=== PATIENT | male | born 1955 | race Hispanic/Latino ===

== ENCOUNTER 2017-07-13 14:26 | Emergency (ER) | payer BC, OTHER ==
[2017-07-13] MEDS ORDERED: LIDOCAINE HCL 1% 20 ML VIAL ONE (15:06)
[2017-07-13] MEDS ORDERED: TETANUS/DIPHTHERIA TOXOID [ADULT] 0.5 ML VIAL IM ONE (15:09)
[2017-07-13] MEDS ORDERED: IBUPROFEN 600 MG TABLET ONE (15:09)
== END 2017-07-13 16:19 | disposition home or self-care (01) ==
LOC: EDH 14:26
DX: S61.432A Puncture wound without foreign body of left hand, initial encounter (principal); Z98.890 Other specified postprocedural states; W26.0XXA Contact with knife, initial encounter; Y93.89 Activity, other specified; Y92.098 Other place in other non-institutional residence as the place of occurrence of the external cause; Y99.8 Other external cause status
CPT/HCPCS: 12002; 73130; 90471; 90714

== ENCOUNTER 2023-03-05 15:19 | Emergency (ER) | payer BC, OTHER ==
[~2023-03-05] VITALS: Ht 172.7 cm; Wt 117.9 kg
[2023-03-05 16:34] LABS: SARS-CoV-2, RNA, NAAT NEGATIVE SARS CoV-2 (NEGATIVE)
[2023-03-05 16:40] LABS: INFLUENZA TYPE A Negative For Type A (NEGATIVE); INFLUENZA TYPE B Negative For Type B (NEGATIVE); RSV negative (NEGATIVE)
[2023-03-05 17:45] LABS: BASOPHILS # (AUTO) 0.03 K/uL (0.00-0.20); BASOPHILS % (AUTO) 0.3 % (0.0-5.0); EOSINOPHILS # (AUTO) 0.05 K/uL (0.00-0.70); EOSINOPHILS % (AUTO) 0.5 % (0.0-8.0); HEMATOCRIT 39.1 % (42-54); IMMATURE GRANULOCYTE ABSOLUTE 0.05 K/uL (0-1); LYMPHOCYTES # (AUTO) 1.2 K/uL (1.0-4.8); LYMPHOCYTES % (AUTO) 12.9 % (21.0-51.0); MEAN CORPUSCULAR HEMOGLOBIN 30.6 pg (27.0-33.0); MEAN CORPUSCULAR HGB CONC 32.5 g/dL (32.0-36.0); MEAN CORPUSCULAR VOLUME 94.2 fL (79-99); MONOCYTES # (AUTO) 0.6 K/uL (0.1-1.0); MONOCYTES % (AUTO) 6.8 % (3.0-13.0); NEUTROPHILS # (AUTO) 7.3 K/uL (1.8-7.7); PLATELET COUNT (AUTO) 215 K/uL (130-400); RED BLOOD CELL COUNT(AUTO) 4.15 MIL/uL (4.50-6.20); WHITE BLOOD COUNT (AUTO) 9.2 K/uL (4.8-10.8)
[2023-03-05 17:54] LABS: CREATININE 1.1 mg/dL (0.5-1.5); POTASSIUM 4.2 mmol/L (3.5-5.1)
[2023-03-05 17:59] LABS: ALBUMIN 3.2 g/dL (3.5-5.0); BILIRUBIN,TOTAL 0.4 mg/dL (0.2-1.0); TOTAL PROTEIN, SERUM 7.7 g/dL (6.0-8.3)
[2023-03-05] MEDS ORDERED: IOHEXOL-350 75 ML VIAL IV ONE (22:01)
[2023-03-05] MEDS ORDERED: IBUP-1493 PO (23:00)
[2023-03-05] MEDS ORDERED: OMEP40CA21 PO (23:00)
[2023-03-05] MEDS ORDERED: KETOROLAC 15MG/ML VIAL (15MG/ML) IM ONE (23:30)
[2023-03-05 23:50] VITALS: BP 132/74; PULSE 88; RESP 18; O2SAT 99
[2023-03-06] MEDS ORDERED: BENZ-39 PO (00:54)
== END 2023-03-05 23:57 | disposition home or self-care (01) ==
LOC: EDH 15:19
DX: K80.20 Calculus of gallbladder without cholecystitis without obstruction (principal); R07.89 Other chest pain; Z20.822 Contact with and (suspected) exposure to COVID-19; Z79.899 Other long term (current) drug therapy
CPT/HCPCS: 99285; 84484; 80053; 85025; 85378; 87807; 87804 ×2; 36415; 87635; 71045; 71100; 71270; 96372; 93005; C9803; J1885; Q9967

== ENCOUNTER 2023-03-09 06:30 | Emergency (ER) | payer OTHER ==
[~2023-03-09] VITALS: Ht 167.6 cm; Wt 121.6 kg
[~2023-03-09 06:30] MED LIST: BENZ-39 PO; IBUP-1493 PO; OMEP40CA21 PO
[2023-03-09] MEDS ORDERED: MORPHINE 4 MG SYG IVP ONE (09:00)
[2023-03-09 09:02] LABS: BASOPHILS # (AUTO) 0.02 K/uL (0.00-0.20); BASOPHILS % (AUTO) 0.2 % (0.0-5.0); HEMATOCRIT 36.1 % (42-54); IMMATURE GRANULOCYTE ABSOLUTE 0.18 K/uL (0-1); LYMPHOCYTES # (AUTO) 0.9 K/uL (1.0-4.8); LYMPHOCYTES % (AUTO) 8.5 % (21.0-51.0); MEAN CORPUSCULAR HEMOGLOBIN 31.1 pg (27.0-33.0); MEAN CORPUSCULAR HGB CONC 34.1 g/dL (32.0-36.0); MEAN CORPUSCULAR VOLUME 91.4 fL (79-99); MONOCYTES # (AUTO) 0.5 K/uL (0.1-1.0); NEUTROPHILS # (AUTO) 9.1 K/uL (1.8-7.7); NEUTROPHILS % (AUTO) 84.6 % (40.0-77.0); PLATELET COUNT (AUTO) 261 K/uL (130-400); RED BLOOD CELL COUNT(AUTO) 3.95 MIL/uL (4.50-6.20); RED CELL DISTRIBUTION WIDTH 12.7 % (11.0-15.5); WHITE BLOOD COUNT (AUTO) 10.8 K/uL (4.8-10.8)
[2023-03-09 09:23] LABS: CREATININE 1.4 mg/dL (0.5-1.5); POTASSIUM 4.6 mmol/L (3.5-5.1)
[2023-03-09 09:28] LABS: ALBUMIN 3.2 g/dL (3.5-5.0); BILIRUBIN,TOTAL 0.4 mg/dL (0.2-1.0); TOTAL PROTEIN, SERUM 7.8 g/dL (6.0-8.3)
[2023-03-09 10:27] VITALS: RESP 18
[2023-03-09 10:42] LABS: APPEARANCE,URINE CLOUDY (CLEAR); BILIRUBIN,URINE NEGATIVE (NEGATIVE); COLOR,URINE YELLOW (YELLOW); GLUCOSE, URINE (UA) NEGATIVE (NEGATIVE); KETONES,URINE 5 mg/dL (NEGATIVE); LEUKOCYTE ESTERASE ,URINE NEGATIVE Leu/uL (NEGATIVE); NITRATE,URINE NEGATIVE (NEGATIVE); OCCULT BLOOD,URINE NEGATIVE (NEGATIVE); PH,URINE 5.5 (5.0-8.0); PROTEIN,URINE 30 mg/dL (NEGATIVE); UROBILINOGEN,URINE 0.2 mg/dL (0.2-1.0)
[2023-03-09 11:02] LABS: ADD UA MICROSCOPIC YES
[2023-03-09 11:05] LABS: HYALINE CASTS, URINE 26-50 /LPF (0-1 /LPF); MUCUS,URINE RARE LPF (None Seen); SQUAMOUS EPITHELIAL CELL,UR RARE /HPF (0-2)
[2023-03-09] MEDS ORDERED: BENZONATATE 100 MG CAPSULE PO ONE ×2 (11:31→12:00)
[2023-03-09 12:19] LABS: SARS-CoV-2, RNA, NAAT NEGATIVE SARS CoV-2 (NEGATIVE)
[2023-03-09] MEDS ORDERED: CEFTRIAXONE 1G VIAL IVPB ONE (13:00)
[2023-03-09 13:23] LABS: INR < 0.93 (0.85-1.15); PROTHROMBIN TIME 10.3 SEC (9.6-11.6)
[2023-03-09 13:25] LABS: PARTIAL THROMBOPLASTIN TIME 25.6 SEC (26.3-35.5)
[2023-03-09 13:48] VITALS: BP 161/72; PULSE 62; O2SAT 95
[2023-03-09] MEDS ORDERED: AEC81 PO (14:46)
[2023-03-09] MEDS ORDERED: TRAM50TA4 PO (14:46)
[2023-03-09] MEDS ORDERED: ALBUHFA IH (14:48)
== END 2023-03-09 15:09 | disposition home or self-care (01) ==
LOC: EDH 06:30
DX: S22.42XA Multiple fractures of ribs, left side, initial encounter for closed fracture (principal); E78.00 Pure hypercholesterolemia, unspecified; I10 Essential (primary) hypertension; Z79.1 Long term (current) use of non-steroidal anti-inflammatories (NSAID); Z79.899 Other long term (current) drug therapy; Z20.822 Contact with and (suspected) exposure to COVID-19; W18.39XA Other fall on same level, initial encounter; Y93.89 Activity, other specified; Y92.89 Other specified places as the place of occurrence of the external cause; Y99.8 Other external cause status
CPT/HCPCS: 99285; 74176; 93970; 96365; 71046; 87635; 96375; 80053; 85025; 85378; 85610; 85730; 87088; 81001; 36415; 71110; C9803; J0696; J2270

== ENCOUNTER → 2023-06-05 | Outpatient (CLI) | payer OTHER ==
[~2023-06-05] MED LIST changes: +AEC81 PO; +ALBUHFA IH; +TRAM50TA4 PO
[2023-06-05 12:08] LABS: BASOPHILS # (AUTO) 0.04 K/uL (0.00-0.20); BASOPHILS % (AUTO) 0.5 % (0.0-5.0); EOSINOPHILS # (AUTO) 0.05 K/uL (0.00-0.70); EOSINOPHILS % (AUTO) 0.6 % (0.0-8.0); HEMATOCRIT 36.6 % (42-54); IMMATURE GRANULOCYTE ABSOLUTE 0.04 K/uL (0-1); LYMPHOCYTES # (AUTO) 1.7 K/uL (1.0-4.8); LYMPHOCYTES % (AUTO) 20.7 % (21.0-51.0); MEAN CORPUSCULAR HEMOGLOBIN 31.3 pg (27.0-33.0); MEAN CORPUSCULAR HGB CONC 32.5 g/dL (32.0-36.0); MEAN CORPUSCULAR VOLUME 96.3 fL (79-99); MONOCYTES # (AUTO) 0.6 K/uL (0.1-1.0); MONOCYTES % (AUTO) 6.9 % (3.0-13.0); NEUTROPHILS # (AUTO) 5.8 K/uL (1.8-7.7); NEUTROPHILS % (AUTO) 70.8 % (40.0-77.0); PLATELET COUNT (AUTO) 224 K/uL (130-400); RED CELL DISTRIBUTION WIDTH 13.4 % (11.0-15.5); WHITE BLOOD COUNT (AUTO) 8.2 K/uL (4.8-10.8)
[2023-06-05 12:39] LABS: ALBUMIN 3.2 g/dL (3.5-5.0); BILIRUBIN,TOTAL 0.3 mg/dL (0.2-1.0); CREATININE 1.1 mg/dL (0.5-1.5); POTASSIUM 4.5 mmol/L (3.5-5.1); TOTAL PROTEIN, SERUM 7.1 g/dL (6.0-8.3)
[2023-06-05 12:41] LABS: B-TYPE NATRIURETIC PEPTIDE 25 pg/mL (0-100)
== END | disposition home or self-care (01) ==
LOC: LAB 08:49
PROVIDERS: ATTEND Internal Medicine Cardiovascular Disease
DX: R06.09 Other forms of dyspnea (principal); I10 Essential (primary) hypertension
CPT/HCPCS: 36415; 80053; 80061; 83880; 85025

== ENCOUNTER → 2023-06-24 | Outpatient (CLI) | payer OTHER ==
[2023-06-24 12:40] LABS: BASOPHILS # (AUTO) 0.04 K/uL (0.00-0.20); BASOPHILS % (AUTO) 0.6 % (0.0-5.0); EOSINOPHILS % (AUTO) 1.4 % (0.0-8.0); HEMATOCRIT 33.8 % (42-54); IMMATURE GRANULOCYTE ABSOLUTE 0.05 K/uL (0-1); LYMPHOCYTES # (AUTO) 2.4 K/uL (1.0-4.8); LYMPHOCYTES % (AUTO) 33.2 % (21.0-51.0); MEAN CORPUSCULAR HEMOGLOBIN 30.7 pg (27.0-33.0); MEAN CORPUSCULAR HGB CONC 32.8 g/dL (32.0-36.0); MEAN CORPUSCULAR VOLUME 93.6 fL (79-99); MONOCYTES # (AUTO) 0.5 K/uL (0.1-1.0); NEUTROPHILS # (AUTO) 4.1 K/uL (1.8-7.7); NEUTROPHILS % (AUTO) 57.1 % (40.0-77.0); PLATELET COUNT (AUTO) 226 K/uL (130-400); RED BLOOD CELL COUNT(AUTO) 3.61 MIL/uL (4.50-6.20); RED CELL DISTRIBUTION WIDTH 13.4 % (11.0-15.5); WHITE BLOOD COUNT (AUTO) 7.2 K/uL (4.8-10.8)
[2023-06-24 12:47] LABS: INR <= 0.93 (0.85-1.15); PROTHROMBIN TIME 10.2 SEC (9.6-11.6)
[2023-06-24 12:48] LABS: PARTIAL THROMBOPLASTIN TIME 25.9 SEC (26.3-35.5)
[2023-06-24 13:07] LABS: CREATININE 1.1 mg/dL (0.5-1.3); POTASSIUM 4.6 mmol/L (3.5-5.1)
== END | disposition home or self-care (01) ==
LOC: LAB 09:27
PROVIDERS: ATTEND Internal Medicine Cardiovascular Disease
DX: I87.1 Compression of vein (principal); I87.2 Venous insufficiency (chronic) (peripheral); R06.09 Other forms of dyspnea; R06.02 Shortness of breath; J45.909 Unspecified asthma, uncomplicated; R53.83 Other fatigue; I10 Essential (primary) hypertension; E78.2 Mixed hyperlipidemia; Z79.82 Long term (current) use of aspirin; Z79.899 Other long term (current) drug therapy
CPT/HCPCS: 36415; 80048; 85025; 85610; 85730

== ENCOUNTER → 2023-07-25 | Outpatient (CLI) | payer OTHER ==
[~2023-07-25] MED LIST changes: +IOHEXOL 350 MG/ML 100ML INFUS..BTL IV ONE
== END | disposition home or self-care (01) ==
LOC: RAH 09:56
PROVIDERS: ATTEND Internal Medicine Cardiovascular Disease
DX: I20.9 Angina pectoris, unspecified (principal); M47.815 Spondylosis without myelopathy or radiculopathy, thoracolumbar region; R94.39 Abnormal result of other cardiovascular function study; R06.00 Dyspnea, unspecified
CPT/HCPCS: 75574; Q9967

== ENCOUNTER 2024-02-09 10:05 | Emergency (ER) | payer OTHER ==
[~2024-02-09] VITALS: Ht 172.7 cm; Wt 117.9 kg
[~2024-02-09 10:05] MED LIST changes: -IOHEXOL 350 MG/ML 100ML INFUS..BTL IV ONE
[2024-02-09 10:24] LABS: APPEARANCE,URINE CLOUDY (CLEAR); BILIRUBIN,URINE NEGATIVE (NEGATIVE); COLOR,URINE YELLOW (YELLOW); GLUCOSE, URINE (UA) NEGATIVE (NEGATIVE); KETONES,URINE NEGATIVE (NEGATIVE); LEUKOCYTE ESTERASE ,URINE NEGATIVE Leu/uL (NEGATIVE); NITRATE,URINE NEGATIVE (NEGATIVE); OCCULT BLOOD,URINE NEGATIVE (NEGATIVE); PROTEIN,URINE 50 mg/dL (NEGATIVE); UROBILINOGEN,URINE 0.2 mg/dL (0.2-1.0)
[2024-02-09 10:28] LABS: ADD UA MICROSCOPIC YES
[2024-02-09 10:31] LABS: MUCUS,URINE RARE LPF (None Seen); SQUAMOUS EPITHELIAL CELL,UR RARE /HPF (0-2)
[2024-02-09] MEDS ORDERED: IBUP-2077 PO (10:51)
[2024-02-09] MEDS ORDERED: CYCL-309 PO (10:51)
[2024-02-09] MEDS: CYCLOBENZAPRINE HCL 10 MG TABLET PO ONE (10:53)
[2024-02-09] MEDS: HYDROcodone/APAP 5/325 1 TAB TABLET PO ONE (10:54)
[2024-02-09 10:57] VITALS: TEMP 98
[2024-02-09 11:13] LABS: HEMATOCRIT 32.4 % (42-54); MEAN CORPUSCULAR HEMOGLOBIN 30.4 pg (27.0-33.0); MEAN CORPUSCULAR HGB CONC 33.6 g/dL (32.0-36.0); MEAN CORPUSCULAR VOLUME 90.3 fL (79-99); RED BLOOD CELL COUNT(AUTO) 3.59 MIL/uL (4.50-6.20); RED CELL DISTRIBUTION WIDTH 13.3 % (11.0-15.5); WHITE BLOOD COUNT (AUTO) 8.7 K/uL (4.8-10.8)
[2024-02-09 11:18] LABS: CREATININE 1.5 mg/dL (0.5-1.3)
[2024-02-09] MEDS: PoTASSium BIcarbonate/CIT AC 25 MEQ TABLET.EFF PO ONE (11:38)
[2024-02-09 11:40] VITALS: BP 122/74; PULSE 74; RESP 17; O2SAT 96
== END 2024-02-09 11:57 | disposition home or self-care (01) ==
LOC: EDH 10:05
DX: S29.012A Strain of muscle and tendon of back wall of thorax, initial encounter (principal); M47.894 Other spondylosis, thoracic region; E78.00 Pure hypercholesterolemia, unspecified; I10 Essential (primary) hypertension; J45.909 Unspecified asthma, uncomplicated; Z79.1 Long term (current) use of non-steroidal anti-inflammatories (NSAID); Z79.82 Long term (current) use of aspirin; Z79.899 Other long term (current) drug therapy; Z98.890 Other specified postprocedural states; X58.XXXA Exposure to other specified factors, initial encounter; Y93.89 Activity, other specified; Y92.89 Other specified places as the place of occurrence of the external cause; Y99.8 Other external cause status
CPT/HCPCS: 36415; 72070; 80048; 81001; 85027

== ENCOUNTER 2024-08-14 18:07 | Inpatient (IN) | payer OTHER ==
[~2024-08-14] VITALS: Ht 172.7 cm; Wt 103.9 kg
[~2024-08-14 18:07] MED LIST changes: +0.9%NACL 50ML IV SCH; +CYCL-309 PO; +IBUP-2077 PO
--- NOTE | 2024-08-14 18:16 | ERN ---
ED Note History of Present Illness Stated Complaint: SIDE AND HEAD PAIN Chief Complaint: Abdominal Pain Time Seen by MD: 18:11 Dictation: PATIENT IS A 69-YEAR-OLD MALE COMING IN TODAY WITH COMPLAINTS OF SEVERE AND SUDDEN ONSET OF RIGHT LOWER QUADRANT PAIN TENDERNESS ONSET 03:00 HOURS THIS MORNING WHILE HE WAS ASLEEP. NAUSEA WITHOUT VOMITING NO FEVER NO CHILLS NO FLANK PAIN, NO CHANGE IN URINATION. Allergies: Coded Allergies: No Known Drug Allergies (Unverified Allergy, Unknown, 03/05/23) Home Meds Active Scripts Cyclobenzaprine HCl (Cyclobenzaprine HCl) 10 Mg Tablet, 1 TAB PO TID for muscle spasms for 10 Days, #30 TAB 0 Refills Prov:JS GEORGE NP 02/09/24 Ibuprofen (Ibuprofen 800 mg Tab) 800 Mg Tab, 800 MG PO Q8H PRN for fever or pain, #30 TAB 0 Refills Prov:JS GEORGE DRYWALL HANGER FRAMER 02/09/24 Albuterol Sulfate (Ventolin Hfa/Proventil Hfa/Proair Hfa) 90 Mcg Puff, 2 PUFF IH Q4HPRN PRN for WHEEZING, #1 INHALER 0 Refills Prov:AYSHA ESPINOSA MD 03/09/23 Aspirin (ASPIRIN 81 MG ECTAB) 81 Mg Ectab, 81 MG PO DAILY, #15 TAB.EC 0 Refills Prov:AYSHA ESPINOSA MD 03/09/23 Tramadol Hcl (Tramadol HCl) 50 Mg Tablet, 50 MG PO TID PRN for PAIN, #15 TAB 0 Refills Prov:AYSHA ESPINOSA MD 03/09/23 Benzonatate (Tessalon Perles) 100 Mg Cap, 100 MG PO TID for cough, #30 CAP 0 Refills Prov:LINDA MATIAS PAC 03/06/23 Omeprazole (Omeprazole) 40 Mg Capsule.dr, 40 MG PO DAILY, #30 CAP Prov:GEORGINA WILSNO MD 03/05/23 Ibuprofen (Motrin/Advil) 800 Mg Tab, 800 MG PO TID, #30 TAB Prov:GEORGINA WILSON MD 03/05/23 Past Medical History Past Medical History: Asthma, Diabetes-Type II, High Cholesterol, Hypertension Additional Past Medical Hx: PE, CKD Surgical History: Cholecystectomy, Other Surgical History Other: TOTAL KNEE LT SX RN Note Reviewed/Agreed w/PFSH: Yes Review of System Dictation CONSTITUTIONAL: NEGATIVE EXCEPT FOR HPI HEAD/FACE: NEGATIVE EXCEPT FOR HPI EENT: NEGATIVE EXCEPT FOR HPI RESPIRATORY: NEGATIVE EXCEPT FOR HPI GASTROINTESTINAL/ABDOMINAL: NEGATIVE EXCEPT FOR HPI RIGHT LOWER QUADRANT PAIN WITH NAUSEA GENITOURINARY: NEGATIVE EXCEPT FOR HPI MUSCULOSKELETAL: NEGATIVE EXCEPT FOR HPI INTEGUMENTARY: NEGATIVE EXCEPT FOR HPI NEUROLOGICAL/PSYCH: NEGATIVE EXCEPT FOR HPI HEMATOLOGIC/LYMPHATIC: NEGATIVE EXCEPT FOR HPI ALL SYSTEMS NEGATIVE, EXCEPT NOTED ABOVE. 13 POINT REVIEW OF SYSTEMS ASSESSED AND ALL NEGATIVE EXCEPT FOR ABOVE. Initial Vital Sign VS Vital Signs Date Time Temp Pulse Resp B/P (MAP) Pulse Ox O2 Delivery O2 Flow Rate FiO2 08/14/24 18:10 98.4 90 18 143/81 97 Room Air 0 08/14/24 18:20 21 Physical Exam Dictation VITAL SIGNS REVIEWED GENERAL APPEARANCE: ALERT, ORIENTED X 3, MODERATE ACUTE DISTRESS, WELL DEVELOPED, NOURISHED. HEAD AND FACE: NON-TRAUMATIC. EYES: PERRL, PINK CONJUNCTIVAS, EYELID NO TRAUMA, ANTERIOR CHAMBER WITH ARCUS SENILIS. EARS: PINNAS INTACT AND NO SIGNS OF TRAUMA OR ERYTHEMA EAR CANALS CLEAR AND NO DISCHARGE TM NO ERYTHEMA NOSE: NO DISCHARGE, NO BLEEDING. OROPHARYNX: MOUTH NORMAL, TONGUE PINK, PHARYNX CLEAR,NO ERYTHEMA, TONSILS NO EXUDATES, NO ABSCESSES NOTED, MUCOUS MEMBRANE MOIST NECK: SUPPLE, NON-TENDER, NO THYROMEGALY, NO MASSES, NO JVD, NO BRUITS BREAST:DEFERRED CHEST:NO TENDERNESS, NO CREPITUS, NO PARADOXICAL MOVEMENT, NO RETRACTIONS LUNGS:CLEAR, WELL-VENTILATED, SYMMETRIC, NO RALES, NO WHEEZING, NO RHONCHI, NO STRIDOR, GOOD BREATH SOUNDS BILATERALLY HEART: REGULAR RATE, REGULAR RHYTHM, NO MURMUR, NO GALLOPS VASCULAR: NO PERIPHERAL EDEMA, ABDOMEN: SOFT, POSITIVE BOWEL SOUNDS, NONDISTENDED, NO GUARDING, MODERATE RIGHT LOWER QUADRANT TENDERNESS NO REBOUND NO REBOUND, NO MASSES NO HEPATOMEGALY, NO SPLENOMEGALY, NO CARLOS'S SIGN, NO HERNIAS. RECTAL: DEFERRED GENITAL: DEFERRED NEUROLOGICAL: NORMAL SPEECH, MOTOR FUNCTION INTACT, SENSORY FUNCTION INTACT MUSCULOSKELETAL: NECK NONTENDER, FULL RANGE OF MOTION, BACK NONTENDER, FULL RANGE OF MOTION, EXTREMITIES: NONTENDER, FULL RANGE OF MOTION SKIN: COLOR PINK, DRY, NO TURGOR, NO RASH, NO LACERATIONS, NO ABRASIONS, NO CONTUSIONS. LYMPHATIC: DEFERRED Results (Laboratory/Radiology) Laboratory/Radiology Laboratory Tests Test 08/14/24 18:25 08/14/24 18:32 White Blood Count 9.5 K/uL (4.8-10.8) Red Blood Count 4.43 MIL/uL (4.50-6.20) L Hemoglobin 13.6 g/dL (14.0-18.0) L Hematocrit 40.6 % (42-54) L Mean Corpuscular Volume 91.6 fL (79-99) Mean Corpuscular Hemoglobin 30.7 pg (27.0-33.0) Mean Corpuscular Hemoglobin Concent 33.5 g/dL (32.0-36.0) Red Cell Distribution Width 12.7 % (11.0-15.5) Platelet Count 219 K/uL (130-400) Mean Platelet Volume 9.3 fL (7.5-10.5) Immature Granulocyte % (Auto) 0.4 % (0-1) Neutrophils (%) (Auto) 84.3 % (40.0-77.0) H Lymphocytes (%) (Auto) 10.6 % (21.0-51.0) L Monocytes (%) (Auto) 3.9 % (3.0-13.0) Eosinophils (%) (Auto) 0.4 % (0.0-8.0) Basophils (%) (Auto) 0.4 % (0.0-5.0) Neutrophils # (Auto) 8.0 K/uL (1.8-7.7) H Lymphocytes # (Auto) 1.0 K/uL (1.0-4.8) Monocytes # (Auto) 0.4 K/uL (0.1-1.0) Eosinophils # (Auto) 0.04 K/uL (0.00-0.70) Basophils # (Auto) 0.04 K/uL (0.00-0.20) Absolute Immature Granulocyte (auto 0.04 K/uL (0-1) Nucleated Red Blood Cells 0.0 % (0.0-0.19) Sodium Level 140 mmol/L (136-145) Potassium Level 3.8 mmol/L (3.5-5.1) Chloride Level 106 mmol/L (101-111) Carbon Dioxide Level 28 mmol/L (21-32) Blood Urea Nitrogen 24 mg/dL (7-18) H Creatinine 1.1 mg/dL (0.5-1.3) Glomerular Filtration Rate Calc 74 mL/min (>90) Random Glucose 110 mg/dL (70-105) H Total Calcium 8.9 mg/dL (8.5-10.1) Lipase 28 U/L (16-77) Urine Color LIGHT-YELLOW (YELLOW) Urine Appearance CLEAR (CLEAR) Urine pH 5.5 (5.0-8.0) Urine Specific [place] 1.027 (1.001-1.031) Urine Protein 20 mg/dL (NEGATIVE) H Urine Glucose (UA) >=1000 mg/dL (NEGATIVE) H Urine Ketones NEGATIVE mg/dL (NEGATIVE) Urine Occult Blood NEGATIVE (NEGATIVE) Urine Nitrate NEGATIVE (NEGATIVE) Urine Bilirubin NEGATIVE mg/dL (NEGATIVE) Urine Urobilinogen 0.2 mg/dL (0.2-1.0) Urine Leukocyte Esterase NEGATIVE Ty/uL Urine RBC 0-1 /HPF (0-1) Urine WBC 2-5 /HPF (0-1) H Urine Squamous Epithelial Cells RARE /HPF (0-2) Urine Bacteria None /HPF (None Seen) CT ABDOMEN/PELVIS W/CONTRAST HISTORY: ACUTE RIGHT LOWER QUADRANT PAIN 03:00 HOURS TECHNIQUE: CT ABDOMEN/PELVIS W/CONTRAST Omnipaque contrast was used. Oral contrast was not given. Coronal and sagittal reformats were obtained. CT was performed with one or more of the following dose reduction techniques: Automated exposure control, adjustment of the mA and/or kV according to the patient's size, or use of the iterative reconstruction technique. Comparison: 03/09/2023 FINDINGS: Mild atelectatic changes are seen in the lung bases. There is hepatic steatosis. Cholecystectomy changes are noted. The spleen, pancreas, and adrenal glands are within normal limits. No hydronephrosis. The urinary bladder is partially distended. Reproductive organs are grossly within normal limits for patient's age. No bowel obstruction identified. Dilated appendix measuring 1.2 cm with mild adjacent inflammatory changes suggest acute appendicitis. There is no evidence of perforation or abscess. Diverticulosis coli without evidence of acute diverticulitis. A stent is seen in the bilateral iliac veins. Atherosclerotic changes of the aorta with calcified plaques. Degenerative changes of the spine are seen. IMPRESSION: Dilated appendix measuring 1.2 cm with mild adjacent inflammatory changes suggest acute appendicitis. There is no evidence of perforation or abscess. Labs Reviewed?: Yes ED Course ED Course Orders Procedure Category Date Status Time Cbc With Differential LAB 08/14/24 Complete 18:13 Urinalysis Profile LAB 08/14/24 Complete 18:13 Ct Abdomen/Pelvis CT 08/14/24 Resulted W/Contrast 18:13 0.9%Nacl 1000ml (Ns PHA 08/14/24 Complete 1000ml) 18:30 Morphine 2mg Syg PHA 08/14/24 Complete (Morphine 2mg Syg) 18:30 Ondansetron 4mg Inj PHA 08/14/24 Complete (Zofran 4mg Inj) 18:30 Lipase LAB 08/14/24 Complete 18:13 Basic Metabolic Panel LAB 08/14/24 Complete 18:13 Ondansetron 4mg Inj PHA 08/14/24 Complete (Zofran 4mg Inj) 18:18 Morphine 4mg Syg PHA 08/14/24 Complete (Morphine 4mg Syg) 18:18 Iohexol (Omnipaque) PHA 08/14/24 Complete 19:00 Zosyn 3.375gm+Ns 50ml PHA 08/14/24 Complete (Zosyn 3.375gm+Ns 21:10 Current Medications Medications (Trade) Dose Ordered Sig/Brad Route PRN Reason Start Time Stop Time Status Last Admin Dose Admin Iohexol (Omnipaque) 75 ml STK-MED ONCE IV 08/14/24 19:00 08/14/24 19:00 DC Morphine Sulfate (morPHINE 2MG SYG) 2 mg ONCE ONCE IVP 08/14/24 18:30 08/14/24 18:31 DC 08/14/24 18:21 Morphine Sulfate (morPHINE 4MG SYG) 4 mg STK-MED ONCE .ROUTE 08/14/24 18:18 08/14/24 18:23 DC Ondansetron HCl (zoFRAN 4MG INJ) 4 mg ONCE ONCE IVP 08/14/24 18:30 08/14/24 18:31 DC 08/14/24 18:19 Ondansetron HCl (zoFRAN 4MG INJ) 4 mg STK-MED ONCE .ROUTE 08/14/24 18:18 08/14/24 18:23 DC Piperacillin Sod/ Tazobactam Sod (Zosyn 3.375gm+NS 50ml) 3.375 gm ONCE STAT IVPB 08/14/24 21:10 08/14/24 21:14 DC 08/14/24 22:16 Sodium Chloride 1,000 ml @ 0 mls/hr ONCE ONCE IV 08/14/24 18:30 08/14/24 18:31 DC 08/14/24 18:18 Vital Signs Date Time Temp Pulse Resp B/P (MAP) Pulse Ox O2 Delivery O2 Flow Rate FiO2 08/14/24 19:52 98.8 83 20 146/66 98 Room Air* 0 21 08/14/24 18:20 97.9 76 21 128/71 98 Room Air* 0 21 08/14/24 18:10 98.4 90 18 143/81 97 Room Air 0 2120/SPOKE WITH PATIENT AND SON AT LENGTH THEY ARE AWARE THE PATIENT HAS ACUTE APPENDICITIS HOWEVER THEY WANT TO PERFORM THE SURGERY. I WE WILL HAVE PATIENT ADMITTED TO THE HOSPITALIST OR [facility] AND HAVE THEM FOLLOW UP FOR SURGERY.Rosemarie/danilo fernandez hetimie, accpted pt. Medical Decision Making MDM MDM: DIFFERENTIAL DIAGNOSIS: DIVERTICULITIS/APPENDICITIS/INCARCERATED HERNIA/UTI/ELECTROLYTE IMBALANCE/DEHYDRATION RATIONALE: TESTS CONSIDERED AND ORDERED SECONDARY TO SHARED DECISION MAKING INCLUDE: LABS, AND RADIOLOGY PREVIOUS OUTSIDE RECORDS REVIEWED: OLD ER VISITS. RISK OF COMPLICATION AND/OR MORBIDITY OR MORTALITY OF PATIENT MANAGEMENT: MODERATE MEDICATIONS-PER MEDICATION RECONCILIATION NEED FOR HOSPITALIZATION: PATIENT DOES MEET CRITERIA FOR HOSPITALIZATION. PATIENT WILL NEED IV ANTIBIOTICS AND SURGICAL CONSULTATION FOR APPENDICITIS NEED FOR EMERGENCY MAJOR/MINOR SURGERY: APPENDECTOMY THERE ARE NO SOCIAL CONCERNS WITH THIS PATIENT. PRESCRIPTION DRUG MANAGEMENT PRESCRIPTIONS WILL INCLUDE SYMPTOMATIC CARE PATIENT'S PRIOR EXTERNAL MEDICAL RECORDS FROM OTHER ER VISITS WERE REVIEWED BY ME INDICATED. PRIOR TESTING AND RESULTS FROM PREVIOUS VISITS WERE REVIEWED. PRIOR TESTS WERE TAKEN INTO ACCOUNT WITH MEDICAL DECISION MAKING AND RESOURCE UTILIZATION, INDEPENDENT HISTORIAN/HISTORIANS WERE USED TO OBTAIN COMPLETE MEDICAL HISTORY. I INDEPENDENTLY INTERPRETED THE TEST THAT WERE PERFORMED, RESULTS WERE REVIEWED BY ME AND CONSIDERED FINDINGS ON RADIOLOGY IF ORDERED. MEDICAL MANAGEMENT AND EXAMINATION INTERPRETATION DISCUSSIONS WERE HAD BY ME WITH OTHER QUALIFIED HEALTHCARE PROFESSIONALS INDICATED FOR THE PATIENT'S CARE. DX & DISP Disposition: Inpatient Decision to Admit Time: 21:22 Departure Impression: Primary Impression: Acute appendicitis Additional Impressions: Dehydration, Hyperglycemia Condition: Stable Referrals: MESERET BRITT M.D. (PCP) Time of Disposition: 21:22 I have reviewed the case, and I agree with, Diagnosis and Plan JS GEORGE NP August 14, 2024 18:16
[2024-08-14] MEDS: 0.9%NACL 1000ML 1,000 ML IV ONE (18:18)
[2024-08-14] MEDS: ondanSETRON 4MG INJ IVP ONE (18:19)
[2024-08-14] MEDS: morPHINE 2 MG SYG IVP ONE (18:21)
--- NOTE | 2024-08-14 18:28 | NUR ---
PENDING GFR RESULTS, IV SITE, & CONSENT FOR CT EXAM.
[2024-08-14 18:33] LABS: BASOPHILS # (AUTO) 0.04 K/uL (0.00-0.20); BASOPHILS % (AUTO) 0.4 % (0.0-5.0); EOSINOPHILS # (AUTO) 0.04 K/uL (0.00-0.70); EOSINOPHILS % (AUTO) 0.4 % (0.0-8.0); HEMATOCRIT 40.6 % (42-54); IMMATURE GRANULOCYTE ABSOLUTE 0.04 K/uL (0-1); LYMPHOCYTES % (AUTO) 10.6 % (21.0-51.0); MEAN CORPUSCULAR HEMOGLOBIN 30.7 pg (27.0-33.0); MEAN CORPUSCULAR HGB CONC 33.5 g/dL (32.0-36.0); MEAN CORPUSCULAR VOLUME 91.6 fL (79-99); MONOCYTES # (AUTO) 0.4 K/uL (0.1-1.0); MONOCYTES % (AUTO) 3.9 % (3.0-13.0); NEUTROPHILS % (AUTO) 84.3 % (40.0-77.0); PLATELET COUNT (AUTO) 219 K/uL (130-400); RED BLOOD CELL COUNT(AUTO) 4.43 MIL/uL (4.50-6.20); RED CELL DISTRIBUTION WIDTH 12.7 % (11.0-15.5); WHITE BLOOD COUNT (AUTO) 9.5 K/uL (4.8-10.8)
[2024-08-14] MEDS: ondanSETRON 4MG INJ ONE (18:33)
[2024-08-14] MEDS: morPHINE 4 MG SYG ONE (18:33)
[2024-08-14 18:43] LABS: APPEARANCE,URINE CLEAR (CLEAR); BILIRUBIN,URINE NEGATIVE (NEGATIVE); COLOR,URINE LIGHT-YELLOW (YELLOW); GLUCOSE, URINE (UA) >=1000 mg/dL (NEGATIVE); KETONES,URINE NEGATIVE (NEGATIVE); LEUKOCYTE ESTERASE ,URINE NEGATIVE Leu/uL (NEGATIVE); NITRATE,URINE NEGATIVE (NEGATIVE); OCCULT BLOOD,URINE NEGATIVE (NEGATIVE); PH,URINE 5.5 (5.0-8.0); PROTEIN,URINE 20 mg/dL (NEGATIVE); UROBILINOGEN,URINE 0.2 mg/dL (0.2-1.0)
[2024-08-14 18:47] LABS: ADD UA MICROSCOPIC YES
[2024-08-14 18:48] LABS: RBC,URINE 0-1 /HPF (0-1); SQUAMOUS EPITHELIAL CELL,UR RARE /HPF (0-2)
[2024-08-14 18:53] LABS: CREATININE 1.1 mg/dL (0.5-1.3); POTASSIUM 3.8 mmol/L (3.5-5.1)
[2024-08-14] MEDS ORDERED: IOHEXOL-350 75 ML VIAL IV ONE (19:00)
--- NOTE | 2024-08-14 20:54 | HMCIMG ---
CT ABDOMEN/PELVIS W/CONTRAST HISTORY: ACUTE RIGHT LOWER QUADRANT PAIN 03:00 HOURS TECHNIQUE: CT ABDOMEN/PELVIS W/CONTRAST Omnipaque contrast was used. Oral contrast was not given. Coronal and sagittal reformats were obtained. CT was performed with one or more of the following dose reduction techniques: Automated exposure control, adjustment of the mA and/or kV according to the patient's size, or use of the iterative reconstruction technique. Comparison: 03/09/2023 FINDINGS: Mild atelectatic changes are seen in the lung bases. There is hepatic steatosis. Cholecystectomy changes are noted. The spleen, pancreas, and adrenal glands are within normal limits. No hydronephrosis. The urinary bladder is partially distended. Reproductive organs are grossly within normal limits for patient's age. No bowel obstruction identified. Dilated appendix measuring 1.2 cm with mild adjacent inflammatory changes suggest acute appendicitis. There is no evidence of perforation or abscess. Diverticulosis coli without evidence of acute diverticulitis. A stent is seen in the bilateral iliac veins. Atherosclerotic changes of the aorta with calcified plaques. Degenerative changes of the spine are seen. IMPRESSION: Dilated appendix measuring 1.2 cm with mild adjacent inflammatory changes suggest acute appendicitis. There is no evidence of perforation or abscess.
[2024-08-14] MEDS: ZOSYN 3.375GM +NS 50ML IVPB STA (22:16)
--- NOTE | 2024-08-14 22:33 | HP ---
[facility] HISTORY & PHYSICAL Date Patient Seen: August 14, 2024 Time of Visit: 22:33 Supervising Physician: Dr. Fairchild Primary Care Physician: Nadine Ngo Outpatient Specialists: Inpatient Consults: Dr. Yeung, General Surgeon PROBLEM LIST: Acute appendicitis, POA Anemia Acute dehydration, POA Acute kidney injury, GFR 74 Diabetes mellitus with hyperglycemia Hypertension Hypercholesteremia History of PE, on Eliquis CKD HPI: Mr. Gillespie is a 69-year-old male with a history of asthma, DM, HTN, hypercholesteremia, PE, CKD who presented [place] [facility] for evaluation of severe and sudden onset of right low quadrant pain tenderness onset this morning while he was sleeping. Patient reported nausea denied vomiting, no fever, chills, flank pain, change in the urine, any other pain, problem or concern. CT abdomen and pelvis: Dilated appendix measuring 1.2 cm with mild adjacent inflammatory changes suggest acute appendicitis. There is no evidence of perforation or abscess. ED provider request patient be admitted with the diagnosis of appendicitis. ED provider request that Dr. Yeung was requested by patient's son who is an RN at [facility]. I spoke to Dr. Yeung who kindly accepted to see the patient as consult. The patient was admitted by the BIS team. I went to assess the patient at bedside. Patient appeared comfortable, in no distress. He reports that he was pretty uncomfortable before administration of a pain medication by ED. I informed the patient and son at bedside of labs, diagnostics, and plan of care. They verbalized understanding and are in agreement with the plan. Plan and assessment are listed below. PAST MEDICAL HX: see above PAST SURGICAL HX: Cholecystectomy, total left knee surgery SOCIAL HISTORY: No tobacco, ETOH, or illicit drug use Coded Allergies: No Known Drug Allergies (Unverified Allergy, Unknown, 03/05/23) REVIEW OF SYSTEMS: 12 point ROS reviewed with patient. Pertinent positives mentioned above. Otherwise negative. PHYSICAL EXAM: GENERAL: alert, weak, awake oriented x 3 HEENT: EOMI, Sclera non icteric, moist mucosa NECK: Supple, no JVD, trachea midline LUNGS: Clear breath sounds bilaterally. No wheezes HEART: Regular rate and rhythm. Normal S1 and S2, without murmurs ABD: Abdomen soft, abdominal tenderness. Bowel sounds present EXT: No clubbing cyanosis or edema NEURO: Alert and oriented x3, follows commands Vital Signs (last 8hr) Date Time Temp Pulse Resp B/P (MAP) Pulse Ox O2 Delivery O2 Flow Rate FiO2 08/14/24 19:52 98.8 83 20 146/66 98 Room Air* 0 21 08/14/24 18:20 97.9 76 21 128/71 98 Room Air* 0 21 08/14/24 18:10 98.4 90 18 143/81 97 Room Air 0 LABS: Hematology Labs: Test 08/14/24 18:25 Range/Units White Blood Count 9.5 4.8-10.8 K/uL Red Blood Count 4.43 L 4.50-6.20 MIL/uL Hemoglobin 13.6 L 14.0-18.0 g/dL Hematocrit 40.6 L 42-54 % Mean Corpuscular Volume 91.6 79-99 fL Mean Corpuscular Hemoglobin 30.7 27.0-33.0 pg Mean Corpuscular Hemoglobin Concent 33.5 32.0-36.0 g/dL Red Cell Distribution Width 12.7 11.0-15.5 % Platelet Count 219 130-400 K/uL Mean Platelet Volume 9.3 7.5-10.5 fL Immature Granulocyte % (Auto) 0.4 0-1 % Neutrophils (%) (Auto) 84.3 H 40.0-77.0 % Lymphocytes (%) (Auto) 10.6 L 21.0-51.0 % Monocytes (%) (Auto) 3.9 3.0-13.0 % Eosinophils (%) (Auto) 0.4 0.0-8.0 % Basophils (%) (Auto) 0.4 0.0-5.0 % Neutrophils # (Auto) 8.0 H 1.8-7.7 K/uL Lymphocytes # (Auto) 1.0 1.0-4.8 K/uL Monocytes # (Auto) 0.4 0.1-1.0 K/uL Eosinophils # (Auto) 0.04 0.00-0.70 K/uL Basophils # (Auto) 0.04 0.00-0.20 K/uL Absolute Immature Granulocyte (auto 0.04 0-1 K/uL Nucleated Red Blood Cells 0.0 0.0-0.19 % Chemistry Labs: Test 5/9/25 18:25 Range/Units Sodium Level 140 136-145 mmol/L Potassium Level 3.8 3.5-5.1 mmol/L Chloride Level 106 101-111 mmol/L Carbon Dioxide Level 28 21-32 mmol/L Blood Urea Nitrogen 24 H 7-18 mg/dL Creatinine 1.1 0.5-1.3 mg/dL Glomerular Filtration Rate Calc 74 >90 mL/min Random Glucose 110 H 70-105 mg/dL Total Calcium 8.9 8.5-10.1 mg/dL Lipase 28 16-77 U/L DIAGNOSTICS / RADIOLOGY RESULTS: [ ] PLAN Admit to medical floor. NPO Consulted with Dr. Yeung, general surgeon who agrees to see patient as a consult. Plan is for surgery in the morning. Continue Zosyn 3.375 IV daily. P.r.n. medications for: Pain management, nausea, vomiting, constipation, hypertension, fever. Monitor renal and liver function. Monitor electrolytes and treat accordingly. Glucometer checks a.c. and HS with insulin regular sliding scale. Monitor for bleed. A.m. labs. DVT and GI prophylaxis: SCDs and Protonix. NEURO: Minimize central acting medications as possible. Maintain fall precautions, adequate lighting during the day PULMONARY: Supplemental 02 as needed. Maintain aspiration precautions at all times CARDIOVASCULAR: Follow hemodynamics. Vital signs per facility protocol GI & NUTRITION: Continue with nutritional support. Continue stool softeners and laxatives as needed. KIDNEYS & ELECTROLYTES: Strict monitoring of intake, output and overall fluid balance. Avoid nephrotoxic medications to the extent possible. Medications to be dosed according to renal function. Monitor electrolytes and replace as needed ENDOCRINE: Maintain blood glucose between 100-180 at all times. Hypoglycemia protocol in place INFECTIOUS DISEASE: Trend temperature, WBC and procalcitonin level Follow cultures, deescalate antibiotics as soon as possible. Panculture if new onset fever ONCOLOGY/HEMATOLOGY/COAGULATION: Monitor for s/s of bleeding Monitor hemoglobin, coagulation studies as needed SKIN: Pressure ulcer prevention per facility protocol Specialty mattress ORTHO/REHAB: Continue PT/OT Prophylaxis: Continue GI and DVT prophylaxis Code Status: Full Resuscitation Disposition: TBD BEVERLY ZABALA CDL DRIVER August 14, 2024 22:33
[2024-08-14] MEDS: acetaMINOPHEN 325 MG TAB PO PRN (23:15)
[2024-08-14] MEDS ORDERED: DEXTROSE 50%-WATER 50 ML DISP.SYRIN IV PRN (23:30)
[2024-08-14] MEDS ORDERED: morPHINE 4 MG SYG IVP PRN (23:30)
[2024-08-14] MEDS ORDERED: MAGNESIUM 2GM PREMIX 50ML 50 ML IV PRN (23:30)
[2024-08-14] MEDS ORDERED: hydroMORPHone 0.5 MG SYG (0.5MG/0.5ML) IVP PRN (23:30)
[2024-08-14] MEDS ORDERED: GLUCAGON 1MG KIT 1 MG ML IM PRN (23:30)
[2024-08-14] MEDS ORDERED: LAbetaLOL 20MG SYG IV PRN (23:30)
[2024-08-14] MEDS ORDERED: acetaMINOPHEN 650 MG SUPPOSITORY RC PRN (23:30)
[2024-08-14] MEDS ORDERED: TEMAZepam 15 MG CAPSULE PO PRN (23:30)
[2024-08-14] MEDS ORDERED: PoTASSium chloRIDE 20MEQ/100ML 100 ML IV PRN (23:30)
--- NOTE | 2024-08-14 23:37 | NUR ---
DR BARTH CONTACTED BY Ms SAGRARIO GU, PENDING CALL BACK
[2024-08-14 23:55] VITALS: BP 128/67; PULSE 72; RESP 18; TEMP 99.3; O2SAT 97
[2024-08-15] VITALS (22 sets, daily range): BP systolic 107–144; BP diastolic 61–98; PULSE 58–73; RESP 14–20; TEMP 97.8–98.7; O2SAT 96
[2024-08-15] MEDS: LACTATED RINGERS 1000ML 1,000 ML IV SCH (00:32)
[2024-08-15] MEDS: ondanSETRON 4MG INJ IVP PRN (00:46)
[2024-08-15] MEDS: morPHINE 2 MG SYG IVP PRN (00:47)
--- NOTE | 2024-08-15 01:20 | NUR ---
NOTIFIED ORDER RECEIVED FOR THE PT TO GO FOR SURGERY THIS AM FOR LAP APPENDECTOMY POSSIBLE OPEN. WENT AHEAD AND CALLED DR. BARTH AND MADE AWARE ABOUT PT LAST INTAKE OF ELIQUIS AT 08/14/24 AM. MD TO TAKE THE PT FOR SURGERY TODAY AT 0730. PT AND FAMILY MADE AWARE OF THE PLAN OF CARE.
[2024-08-15] MEDS ORDERED: EZET10TA48 PO (01:49)
[2024-08-15] MEDS ORDERED: DAPA10TA PO (01:49)
[2024-08-15] MEDS ORDERED: APIX5TAB PO (01:49)
[2024-08-15] MEDS ORDERED: AMLO-257 PO (01:49)
[2024-08-15] MEDS ORDERED: MONT-39 PO (01:49)
[2024-08-15] MEDS ORDERED: PANT40TA54 PO (01:49)
[2024-08-15 04:20] LABS: MEAN CORPUSCULAR HEMOGLOBIN 30.4 pg (27.0-33.0); MEAN CORPUSCULAR HGB CONC 32.6 g/dL (32.0-36.0); MEAN CORPUSCULAR VOLUME 93.3 fL (79-99); RED BLOOD CELL COUNT(AUTO) 3.75 MIL/uL (4.50-6.20); RED CELL DISTRIBUTION WIDTH 12.6 % (11.0-15.5); WHITE BLOOD COUNT (AUTO) 6.8 K/uL (4.8-10.8)
[2024-08-15 04:43] LABS: MAGNESIUM 1.7 mg/dL (1.80-2.40); PHOSPHORUS 3.4 mg/dL (2.5-4.9); POTASSIUM 3.9 mmol/L (3.5-5.1); THYROID STIMULATING HORMONE 2.72 uIU/mL (0.36-3.74)
[2024-08-15] MEDS: ZOSYN 3.375GM +NS 50ML IVPB SCH (05:48)
[2024-08-15] MEDS: INSULIN humuLIN R 100 UNIT/ML 3ML SQ SCH (06:34)
--- NOTE | 2024-08-15 07:00 | NUR ---
PT TAKEN TO SURGERY BY OR CREW.
[2024-08-15] MEDS ORDERED: SUCCINYLCHOLINE CHLORIDE 20 MG/ML 10 ML VIAL ONE (07:08)
[2024-08-15] MEDS ORDERED: rocuRONium bROMide 10MG/1ML 5ML VL ONE (07:08)
[2024-08-15] MEDS ORDERED: dexaMETHasone SOD PHOSPHATE 10MG/ML 1ML VIAL ONE (07:08)
[2024-08-15] MEDS ORDERED: ondanSETRON 4MG INJ ONE (07:08)
[2024-08-15] MEDS ORDERED: proPOFol 10 MG/ML 20ML VIAL IV ONE (07:08)
[2024-08-15] MEDS ORDERED: MIDAZOLAM HCL 1 MG/ML 2ML VIAL ONE (07:08)
[2024-08-15] MEDS ORDERED: LIDOCAINE PF 100MG/5ML (2%) SYRINGE 5ML ONE (07:08)
--- NOTE | 2024-08-15 07:08 | CONS ---
GENERAL SURGERY CONSULTATION NOTE Date/Time Patient Seen: [ August 15, 2024] Requesting Physician: [ BIS service] Reason for Consultation: [ Acute appendicitis] History of Present Illness: [ Patient with multiple medical problems presented to the hospital with three day history worth of right lower quadrant abdominal pain associated with the pain with some nausea no emesis. Patient indicates subjective fevers. Prior to onset of symptoms patient was tolerating a regular diet, having regular bowel function. CT scan was done in the emergency room that shows dilated appendix with a periappendiceal stranding. I was consulted evaluated the patient for a laparoscopic appendectomy. Patient is currently on Eliquis for peripheral vascular disease and a history of a PE.] Past Medical History: [Diabetes, hypercholesterolemia, chronic kidney disease, peripheral vascular disease ] Past Surgical History: [ Cholecystectomy, placement of bilateral femoral stents] Family History: [ Noncontributory] Social History: [ Patient denies any illicit drug use] Habits: [Never] smoker. [Denies] alcohol consumption. [Denies] illicit drug use Current Medications Medications (Trade) Dose Ordered Sig/Brad Route Start Time Stop Time Status Last Admin Dose Admin Insulin Human Regular (humuLIN R 100 UNIT/ML 3ML) INSULIN SLIDING SCAL... ACHS SQ 08/15/24 07:30 09/14/24 07:29 Lactated Ringer's 1,000 ml @ 75 mls/hr [id number] IV 08/14/24 23:30 09/13/24 23:29 08/15/24 00:32 75 MLS/HR Piperacillin Sod/ Tazobactam Sod (Zosyn 3.375gm+NS 50ml) 3.375 gm ONCE STAT IVPB 08/14/24 21:10 08/14/24 21:14 DC 08/14/24 22:16 3.375 GM Piperacillin Sod/ Tazobactam Sod (Zosyn 3.375gm+NS 50ml) 3.375 gm Q8H IVPB 08/15/24 06:00 08/25/24 05:59 08/15/24 05:48 3.375 GM Sodium Chloride (NS 50ml) 50 ml AD IV 08/14/24 06:00 08/14/24 23:23 DC Review of Systems: Fourteen point review of systems negative except was mentioned in history of present illness Physical Examination: GENERAL: [No acute distress.] HEAD: [Normal with no signs of head trauma.] EYES: [PERRLA, EOMI, conjunctiva and sclera normal.] ENT: [Hearing grossly intact, normal oropharynx.] NECK: [Supple without JVD. There is no tenderness, lymphadenopathy, or masses. No thyromegaly. Normal carotid upstrokes without bruits.] LUNGS: [Clear breath sounds bilaterally. There are right basilar rales one third of the way up the chest. No wheezes, or rhonchi.] HEART: [Normal rate and rhythm. Normal S1 and S2 without mumurs, gallop or rub.] VASC: [Peripheral pulses +2 bilaterally.] ABD: [Bowel sounds normal, soft, nontender, no masses, no organomegaly. No audible bruits.] : [Not examined] LYMPH: [No lymphadenopathy noted.] EXT: [No clubbing, cyanosis or edema.] SKIN: [No rashes or lesions noted.] NEURO: [Awake, alert, and oriented x3. No focal sensory or strength deficits noted.] Vital Signs (last 8hr) Date Time Temp Pulse Resp B/P (MAP) Pulse Ox O2 Delivery O2 Flow Rate FiO2 08/15/24 04:18 98.4 63 17 130/67 97 Room Air 08/14/24 23:55 97 Room Air* 0 21 08/14/24 23:55 99.3 72 18 128/67 96 Room Air 08/14/24 23:34 98.8 76 20 136/71 97 Room Air* 0 21 Laboratory: [ ] Hematology Labs: Test 08/15/24 03:58 08/14/24 18:25 Range/Units White Blood Count 6.8 # 4.8-10.8 K/uL Red Blood Count 3.75 L 4.50-6.20 MIL/uL Hemoglobin 11.4 L 14.0-18.0 g/dL Hematocrit 35.0 L 42-54 % Mean Corpuscular Volume 93.3 79-99 fL Mean Corpuscular Hemoglobin 30.4 27.0-33.0 pg Mean Corpuscular Hemoglobin Concent 32.6 32.0-36.0 g/dL Red Cell Distribution Width 12.6 11.0-15.5 % Platelet Count 167 130-400 K/uL Mean Platelet Volume 9.6 7.5-10.5 fL Nucleated Red Blood Cells 0.0 0.0-0.19 % Immature Granulocyte % (Auto) 0.4 0-1 % Neutrophils (%) (Auto) 84.3 H 40.0-77.0 % Lymphocytes (%) (Auto) 10.6 L 21.0-51.0 % Monocytes (%) (Auto) 3.9 3.0-13.0 % Eosinophils (%) (Auto) 0.4 0.0-8.0 % Basophils (%) (Auto) 0.4 0.0-5.0 % Neutrophils # (Auto) 8.0 H 1.8-7.7 K/uL Lymphocytes # (Auto) 1.0 1.0-4.8 K/uL Monocytes # (Auto) 0.4 0.1-1.0 K/uL Eosinophils # (Auto) 0.04 0.00-0.70 K/uL Basophils # (Auto) 0.04 0.00-0.20 K/uL Absolute Immature Granulocyte (auto 0.04 0-1 K/uL Chemistry Labs: Test 08/15/24 03:58 08/15/24 00:10 08/14/24 18:25 Range/Units Sodium Level 141 136-145 mmol/L Potassium Level 3.9 3.5-5.1 mmol/L Chloride Level 107 101-111 mmol/L Carbon Dioxide Level 28 21-32 mmol/L Blood Urea Nitrogen 17 7-18 mg/dL Creatinine 1.0 0.5-1.3 mg/dL Glomerular Filtration Rate Calc 82 >90 mL/min Random Glucose 98 70-105 mg/dL Total Calcium 8.1 L 8.5-10.1 mg/dL Phosphorus Level 3.4 2.5-4.9 mg/dL Magnesium Level 1.70 L 1.80-2.40 mg/dL Thyroid Stimulating Hormone (TSH) 2.72 0.36-3.74 uIU/mL Whole Blood Glucose 100 70-110 MG/DL Lipase 28 16-77 U/L Diagnostics / Radiology: [Copy/Paste Echos/Imaging Report here] Assessment: [Acute appendicitis ] Plan: [ Plan laparoscopic appendectomy possible open. Risks associated with the procedure not limited to infection, bleeding, injury to surrounding structures has been explained to patient and he indicates he understands and would like to proceed.] IVETTE BARTH MD August 15, 2024 07:08
[2024-08-15] MEDS ORDERED: EPINEPHrine PF 1MG (1:1,000) 1 MG/ML AMP ONE (07:10)
[2024-08-15] MEDS ORDERED: FENTanyl CITRate PF 50 MCG/1 ML 2ML VIAL ONE (07:10)
[2024-08-15] MEDS ORDERED: BUPIvacaine/PF 0.5% 30ML VIAL ONE (07:10)
[2024-08-15] MEDS: BUPIvacaine/EPI/PF 0.5% 30ML VIAL IJ ONE (07:35)
[2024-08-15] MEDS ORDERED: GLYCOPYRROLATE 0.2 MG/ML 5 ML VIAL ONE (07:40)
--- NOTE | 2024-08-15 08:35 | OP ---
Operative Note: DATE OF PROCEDURE: 08/15/24 SURGEON: IVETTE BARTH MD MANAGER TRANSPLANT: [Crystal Polk CFA] ANESTHESIA: [General endotracheal anesthesia] ANESTHESIOLOGIST/GEOSPATIAL SCIENTIST: [[facility] anesthesia team] PREOPERATIVE DIAGNOSIS: [Acute appendicitis] POSTOPERATIVE DIAGNOSIS: [Same] SYNOPSIS: [Acute appendicitis Laparoscopic appendectomy All sponges and instruments accounted for at the end the case Patient tolerated the procedure well, there no complications] PROCEDURE: [Laparoscopic appendectomy] ESTIMATED BLOOD LOSS: [Less than 10 cc] INDICATIONS: [Acute appendicitis] DESCRIPTION OF PROCEDURE: [On day of surgery patient presented to the hospital. Patient was brought back to operating room. Positioned in the supine position. Preoperative antibiotics were given. Bilateral SCDs were placed. Patient was intubated. Patient then was prepped and draped the usual fashion. Skin incision made in the umbilicus. Dissection down to an umbilical defect was done with a pair of curved clamps. A 4 mm trocars inserted under direct vision. Abdomen was insufflated to 15 mmHg. No injury to omentum or bowel was noted. Then a 5 mm port was placed in the suprapubic region. A 12 mm port was placed in the left lateral abdomen. The appendix was identified grasped and elevated. A defect was created in the mesoappendix at the base of the appendix. The base of the appendix was then transected with Endo ROSALBA stapler. A second load of the Endo ROSALBA stapler was used to transect the mesoappendix. The appendix was then removed from the abdominal cavity. The abdomen was copiously irrigated. All irrigant was removed. Appropriate hemostasis was observed. Then all insufficient gas was removed. Ports were removed. The incision was closed in subcuticular fashion and appropriate dressed. Patient then was woken up, transferred to a stretcher, taken to recovery room to recover. All sponges and instruments were accounted for at the end the case. Patient tolerated the procedure well, there is no complications.] IVETTE BARTH MD August 15, 2024 08:35
[2024-08-15] MEDS: traMADol HCL 50 MG TABLET PO PRN (11:12)
--- NOTE | 2024-08-15 13:03 | PN ---
[facility] PROGRESS NOTE Date Patient Seen: August 15, 2024 Time of Visit: 13:03 Supervising Physician: Dr. Nico Ventura Primary Care Physician: Nadine Ngo Outpatient Specialists: Inpatient Consults: Dr. Yeung, General Surgeon PROBLEM LIST: Acute appendicitis, POA s/p laparoscopic appendectomy 08/15/24 Anemia Acute dehydration, POA Acute kidney injury, GFR 74 Diabetes mellitus with hyperglycemia Hypertension Hypercholesteremia History of PE, on Eliquis CKD INTERVAL HISTORY: Patient evaluated at bedside with family members present. Currently endorses moderate pain at the incision site, patient states he has a sensation to urinate however has been unable to do so at this point. Patient was straight catheterized in the ED upon admission, has not urinated since. Currently with urinal in the bed pending to void prior to 2:00 p.m. otherwise we will evaluate for possible Bishop insertion. Uncomplicated laparoscopic appendectomy, patient continues on Zosyn at this time. Restarting home medications, Eliquis to be resumed starting tomorrow morning. Treatment plan discussed with family and patient all in agreement. REVIEW OF SYSTEMS: 12 point ROS reviewed with patient. Pertinent positives mentioned above. Otherwise negative. PHYSICAL EXAM: GENERAL: alert, weak, awake oriented x 3 HEENT: EOMI, Sclera non icteric, moist mucosa NECK: Supple, no JVD, trachea midline LUNGS: Clear breath sounds bilaterally. No wheezes HEART: Regular rate and rhythm. Normal S1 and S2, without murmurs ABD: Abdomen soft, abdominal tenderness. Bowel sounds present EXT: No clubbing cyanosis or edema NEURO: Alert and oriented x3, follows commands Vital Signs (last 8hr) Date Time Temp Pulse Resp B/P (MAP) Pulse Ox O2 Delivery O2 Flow Rate FiO2 08/15/24 11:20 63 20 135/73 97 Room Air 08/15/24 10:50 59 20 119/70 98 Room Air 08/15/24 10:25 58 20 120/63 97 Room Air 08/15/24 10:10 59 20 122/69 96 Room Air 08/15/24 09:55 59 20 122/73 97 Room Air 08/15/24 09:40 61 20 123/71 94 Room Air 08/15/24 09:25 97.9 72 17 137/69 98 Nasal Cannula 2.0 24 08/15/25 09:25 98.8 70 20 129/88 97 Room Air 21 08/15/24 09:20 70 16 139/71 99 Nasal Cannula 2.0 08/15/24 09:15 62 18 133/68 98 Nasal Cannula 2.0 24 08/15/24 09:10 64 18 143/72 98 Nasal Cannula 2.0 24 08/15/24 09:05 65 15 136/71 98 Nasal Cannula 2.0 08/15/24 09:00 67 17 142/72 100 Nonrebreathing Mask 10.0 100 08/15/24 08:55 70 16 130/61 100 Nonrebreathing Mask 10.0 100 08/15/24 08:50 73 16 133/62 100 Nonrebreathing Mask 10.0 100 08/15/24 08:45 72 16 124/67 100 Nonrebreathing Mask 10.0 100 08/15/24 08:40 97.9 71 14 107/73 100 Nonrebreathing Mask 10.0 100 LABS: Hematology Labs: Test 08/15/24 03:58 08/14/24 18:25 Range/Units White Blood Count 6.8 # 4.8-10.8 K/uL Red Blood Count 3.75 L 4.50-6.20 MIL/uL Hemoglobin 11.4 L 14.0-18.0 g/dL Hematocrit 35.0 L 42-54 % Mean Corpuscular Volume 93.3 79-99 fL Mean Corpuscular Hemoglobin 30.4 27.0-33.0 pg Mean Corpuscular Hemoglobin Concent 32.6 32.0-36.0 g/dL Red Cell Distribution Width 12.6 11.0-15.5 % Platelet Count 167 130-400 K/uL Mean Platelet Volume 9.6 7.5-10.5 fL Nucleated Red Blood Cells 0.0 0.0-0.19 % Immature Granulocyte % (Auto) 0.4 0-1 % Neutrophils (%) (Auto) 84.3 H 40.0-77.0 % Lymphocytes (%) (Auto) 10.6 L 21.0-51.0 % Monocytes (%) (Auto) 3.9 3.0-13.0 % Eosinophils (%) (Auto) 0.4 0.0-8.0 % Basophils (%) (Auto) 0.4 0.0-5.0 % Neutrophils # (Auto) 8.0 H 1.8-7.7 K/uL Lymphocytes # (Auto) 1.0 1.0-4.8 K/uL Monocytes # (Auto) 0.4 0.1-1.0 K/uL Eosinophils # (Auto) 0.04 0.00-0.70 K/uL Basophils # (Auto) 0.04 0.00-0.20 K/uL Absolute Immature Granulocyte (auto 0.04 0-1 K/uL Chemistry Labs: Test 08/15/24 09:13 08/15/24 03:58 08/14/24 18:25 Range/Units Whole Blood Glucose 114 H 70-110 MG/DL Sodium Level 141 136-145 mmol/L Potassium Level 3.9 3.5-5.1 mmol/L Chloride Level 107 101-111 mmol/L Carbon Dioxide Level 28 21-32 mmol/L Blood Urea Nitrogen 17 7-18 mg/dL Creatinine 1.0 0.5-1.3 mg/dL Glomerular Filtration Rate Calc 82 >90 mL/min Random Glucose 98 70-105 mg/dL Total Calcium 8.1 L 8.5-10.1 mg/dL Phosphorus Level 3.4 2.5-4.9 mg/dL Magnesium Level 1.70 L 1.80-2.40 mg/dL Thyroid Stimulating Hormone (TSH) 2.72 0.36-3.74 uIU/mL Lipase 28 16-77 U/L DIAGNOSTICS / RADIOLOGY RESULTS: [ ] PLAN Admit to medical floor. NPO Consulted with Dr. Yeung, general surgeon who agrees to see patient as a consult. Plan is for surgery in the morning. Continue Zosyn 3.375 IV daily. P.r.n. medications for: Pain management, nausea, vomiting, constipation, hypertension, fever. Monitor renal and liver function. Monitor electrolytes and treat accordingly. Glucometer checks a.c. and HS with insulin regular sliding scale. Monitor for bleed. A.m. labs. DVT and GI prophylaxis: SCDs and Protonix. NEURO: Minimize central acting medications as possible. Maintain fall precautions, adequate lighting during the day PULMONARY: Supplemental 02 as needed. Maintain aspiration precautions at all times CARDIOVASCULAR: Follow hemodynamics. Vital signs per facility protocol GI & NUTRITION: Continue with nutritional support. Continue stool softeners and laxatives as needed. KIDNEYS & ELECTROLYTES: Strict monitoring of intake, output and overall fluid balance. Avoid nephrotoxic medications to the extent possible. Medications to be dosed according to renal function. Monitor electrolytes and replace as needed ENDOCRINE: Maintain blood glucose between 100-180 at all times. Hypoglycemia protocol in place INFECTIOUS DISEASE: Trend temperature, WBC and procalcitonin level Follow cultures, deescalate antibiotics as soon as possible. Panculture if new onset fever ONCOLOGY/HEMATOLOGY/COAGULATION: Monitor for s/s of bleeding Monitor hemoglobin, coagulation studies as needed SKIN: Pressure ulcer prevention per facility protocol Specialty mattress ORTHO/REHAB: Continue PT/OT Prophylaxis: Continue GI and DVT prophylaxis Code Status: Full Resuscitation Disposition: CRYSTAL TSANG August 15, 2024 13:03
[2024-08-15] MEDS: EZETIMIBE 10 MG TAB PO SCH (21:45)
[2024-08-15] MEDS: monteLUKAST sodIUM 10 MG TAB PO SCH (21:45)
[2024-08-16] VITALS: BP 123/82; PULSE 82; RESP 20; TEMP 98.3
[2024-08-16 04:00] VITALS: BP 132/61; PULSE 60; RESP 20; TEMP 98.9
[2024-08-16 04:34] LABS: MEAN CORPUSCULAR HEMOGLOBIN 30.5 pg (27.0-33.0); MEAN CORPUSCULAR HGB CONC 33.2 g/dL (32.0-36.0); MEAN CORPUSCULAR VOLUME 91.6 fL (79-99); RED BLOOD CELL COUNT(AUTO) 3.71 MIL/uL (4.50-6.20); RED CELL DISTRIBUTION WIDTH 12.3 % (11.0-15.5); WHITE BLOOD COUNT (AUTO) 7.4 K/uL (4.8-10.8)
[2024-08-16 04:48] LABS: CREATININE 1.1 mg/dL (0.5-1.3); POTASSIUM 4.2 mmol/L (3.5-5.1)
[2024-08-16 07:42] VITALS: BP 135/75; PULSE 72; RESP 19; TEMP 98.6
[2024-08-16 09:10] VITALS: O2SAT 97
[2024-08-16] MEDS: PANTOPrazole 40 MG TAB DR PO SCH (09:14)
[2024-08-16] MEDS: APIXaban 5 MG TABLET PO SCH (09:14)
[2024-08-16] MEDS: amLODIPine 5 MG TAB PO SCH (09:14)
--- NOTE | 2024-08-16 11:28 | DS ---
[facility] DISCHARGE SUMMARY Date Patient Seen: August 16, 2024 Time of Visit: 11:28 Supervising Physician: [ ] Supervising Physician: Dr. Nico Ventura Primary Care Physician: Nadine Ngo Outpatient Specialists: Inpatient Consults: Dr. Yeung, General Surgeon HOSPITAL COURSE: HPI (per admitting provider) Mr. Gillespie is a 69-year-old male with a history of asthma, DM, HTN, hypercholesteremia, PE, CKD who presented to [facility] ED for evaluation of severe and sudden onset of right low quadrant pain tenderness onset this morning while he was sleeping. Patient reported nausea denied vomiting, no fever, chills, flank pain, change in the urine, any other pain, problem or concern. CT abdomen and pelvis: Dilated appendix measuring 1.2 cm with mild adjacent inflammatory changes suggest acute appendicitis. There is no evidence of perforation or abscess. ED provider request patient be admitted with the diagnosis of appendicitis. ED provider request that Dr. Yeung was requested by patient's son who is an RN at [facility]. I spoke to Dr. Yeung who kindly accepted to see the patient as consult. The patient was admitted by the BIS team. I went to assess the patient at bedside. Patient appeared comfortable, in no distress. He reports that he was pretty uncomfortable before administration of a pain medication by ED. I informed the patient and son at bedside of labs, diagnostics, and plan of care. They verbalized understanding and are in agreement with the plan. Plan and assessment are listed below. The patient was treated for the following problems: ACTIVE PROBLEM LIST FOR THE HOSPITALIZATION: Acute appendicitis, POA s/p laparoscopic appendectomy 08/15/24 Anemia Acute dehydration, POA, resolved Acute kidney injury, GFR 74, imrpoved CHRONIC PROBLEMS: continue previous management per PCP unless otherwise indicated Diabetes mellitus with hyperglycemia Hypertension Hypercholesteremia History of PE, on Eliquis CKD REWINDER FINDINGS/RECOMMENDATIONS: [ ] PROCEDURES: as mentioned above DISCHARGE MEDICATIONS: Pt hemodynamically stable and afebrile at time of discharge. PCP notified of patients admission, hospital course and discharge. PHYSICAL EXAM: GENERAL: alert, weak, awake oriented x 3 HEENT: EOMI, Sclera non icteric, moist mucosa NECK: Supple, no JVD, trachea midline LUNGS: Clear breath sounds bilaterally. No wheezes HEART: Regular rate and rhythm. Normal S1 and S2, without murmurs ABD: Abdomen soft, abdominal tenderness. Bowel sounds present EXT: No clubbing cyanosis or edema NEURO: Alert and oriented x3, follows commands FOLLOW-UP: Follow-up with PCP in 2-3 days RECOMMENDATIONS: See Discharge Instructions This case was seen and discussed with my supervising physician. More than 30 m inutes spent on discharge process, including evaluation of the patient, discussion with nursing staff, medication reconciliation and follow-up appointments CRYSTAL HARDY August 16, 2024 11:28
[2024-08-16 11:45] VITALS: BP 131/64; PULSE 56; RESP 19; TEMP 97.9
--- NOTE | 2024-08-16 12:15 | NUR ---
DC NOTE DC INSTRUCTIONS AND FOLLOW UP APPOINTMENTS GIVEN TO PT AND FAMILY MEMBER, VERBALIZED UNDERSTANDING. PIV REMOVED, CATHETER INTACT, DENIES ANY PAIN OR DISCOMFORT AT THIS TIME. PT IS WHEELED DOWNSTAIRS WITH [employer] INTO VIA PRIVATE CAR. NO FURTHER COMMENTS OR CONCERNS AT THIS TIME.
--- NOTE | 2024-08-19 13:52 | NUR ---
Transitional Phone Call Patient speaks English. Spoke to patient, states "daphne hester." States has his medications and continued them as instructed; no questions or concerns. [facility] PCP - Dr. James's office called him to set follow up appointment but was not able to make it due to being postsurgical and location (office in [place].) [facility] was not aware he had to set up the followup appointment with surgeon - Dr. Yeung in two weeks; provided phone number; patient states will make appointment. No further questions or concerns at this time.
== END 2024-08-16 12:15 | disposition home or self-care (01) | DRG 398 ==
LOC: EDH 18:07 → EDHIP 22:26 → 3DH 23:43
PROVIDERS: ADMIT Internal Medicine Critical Care Medicine; ATTEND Internal Medicine Critical Care Medicine
PROC: 0DTJ4ZZ Resection of Appendix, Percutaneous Endoscopic Approach (ICD-10-PCS; principal; 2024-08-15 07:35)
DX: K35.80 Unspecified acute appendicitis (principal); N17.9 Acute kidney failure, unspecified; N18.9 Chronic kidney disease, unspecified; E78.00 Pure hypercholesterolemia, unspecified; E11.65 Type 2 diabetes mellitus with hyperglycemia; E11.51 Type 2 diabetes mellitus with diabetic peripheral angiopathy without gangrene; E11.22 Type 2 diabetes mellitus with diabetic chronic kidney disease; D64.9 Anemia, unspecified; E86.0 Dehydration; J45.909 Unspecified asthma, uncomplicated; I12.9 Hypertensive chronic kidney disease with stage 1 through stage 4 chronic kidney disease, or unspecified chronic kidney disease; Z86.711 Personal history of pulmonary embolism; Z79.01 Long term (current) use of anticoagulants; Z90.49 Acquired absence of other specified parts of digestive tract; Z79.899 Other long term (current) drug therapy; E66.01 Morbid (severe) obesity due to excess calories; Z68.34 Body mass index [BMI] 34.0-34.9, adult
CPT/HCPCS: 36415; 74177; 80048; 81001; 82948; 83690; 83735; 84100; 84443; 85025; 85027; 86850; 86900; 86901; 96374; 96375; 99285; A4344; G0378; J0171; J0330; J1100; J2003; J2250; J2270; J2405; J2543; J2704; J3010; J3490; J7030; J7120; Q9967; A4600; A4649; A4930; J0665